=== PATIENT | female | born 1980 | race American Indian/Alaskan Native ===

== ENCOUNTER 2016-10-29 18:38 | Emergency (ER) | payer SELFPAY ==
[2016-10-29 18:50] VITALS: BP 118/84
[2016-10-29 19:44] LABS: Bacteria,Urine 1+ /HPF (Negative); Bilirubin,Urine NEG (Negative); Blood,Urine SM (Negative); Ketones,Urine NEG (Negative); Leukocyte Esterase,Urine MOD (Negative); Nitrite,Urine POS (Negative); Protein,Urine <15 mg/dL mg/dL (Negative); Urobilinogen,Urine < 2.0 mg/dL (<2.0)
--- NOTE | 2016-10-29 21:28 | Emergency Department Report ---
HPI - General Chief Complaint: Urogenital-Female Time Seen by Provider: 10/29/16 21:11 - HPI HPI: Patient is a 36-year-old female presents to the ED cc of urinary frequency and dysuria 2 days. Patient states she has noticed the urine smells a bit different and she is asked to frequent urination. She admits last menstrual period is 10/18/2016 states that she is not . She denies fevers/chills/ nausea/vomiting/abdominal pain/pelvic pain times vaginal bleeding past vaginal discharge or any other symptoms. ED Past Medical Hx - Past Medical History Previous Medical History?: No - Surgical History Additional Surgical History: - Social History Smoking Status: Current Every Day Smoker Substance Use Type: None - Medications Home Medications: Home Medications Medication Instructions Recorded Confirmed Last Taken Type Ciprofloxacin HCl [Ciprofloxacin 500 mg PO Q12HR #14 tab 10/29/16 Unknown Rx TAB] ED Review of Systems ROS: Stated complaint: UTI SYMPTOMS Other details as noted in HPI Constitutional: denies: chills, fever Eyes: denies: eye pain, eye discharge, vision change ENT: denies: ear pain, throat pain Respiratory: denies: cough, shortness of breath, wheezing Cardiovascular: denies: chest pain, palpitations Endocrine: no symptoms reported Gastrointestinal: denies: abdominal pain, nausea, vomiting, diarrhea Genitourinary: dysuria, frequency. denies: urgency, discharge Musculoskeletal: denies: back pain, joint swelling, arthralgia Skin: denies: rash, lesions Neurological: denies: headache, weakness, paresthesias Psychiatric: denies: anxiety, depression Hematological/Lymphatic: denies: easy bleeding, easy bruising Physical Exam - Physical Exam Vital Signs: Vital Signs 10/29/16 18:47 Temperature 98.6 F Pulse Rate 84 Respiratory 17 Rate Blood Pressure 118/84 O2 Sat by Pulse 100 Oximetry Physical Exam: GENERAL: Alert and oriented x3, no apparent distress, Normal Gait, atraumatic. HEAD: Head is normocephalic and a-traumatic. LUNGS: Symetrical with respiration, No wheezing, no rales or crackles, CTAB. HEART: S1, S2 present, regular rate and rhythm without murmur, no rubs, no gallops. Non tender to palpation ABDOMEN: No organomegaly was noted,Positive bowel sounds, soft, and non- distended. . Nontender to palpation on all Quadrants, NO CVA tenderness. SKIN: Warm and dry, No lesions, No ulceration or induration present. ED Course Vital Signs 10/29/16 18:47 Temperature 98.6 F Pulse Rate 84 Respiratory 17 Rate Blood Pressure 118/84 O2 Sat by Pulse 100 Oximetry ED Medical Decision Making - Medical Decision Making 36-year-old female presents with urinary tract infection ED course: Urinalysis, UPT ordered. Urinalysis positive for bacteria and elevated WBC Discussed findings with patient. Patient received Bactrim DS in the ED. Discussed home antibiotics and completion of the LAD is prescribed Vital signs are stable patient is in no acute distress She is neurologically intact Discussed with follow-up. Primary care physician as referred. Critical care attestation.: If time is entered above; I have spent that time in minutes in the direct care of this critically ill patient, excluding procedure time. ED Disposition Clinical Impression: UTI (urinary tract infection) Qualifiers: Urinary tract infection type: acute cystitis Hematuria presence: with hematuria Qualified Code(s): N30.01 - Acute cystitis with hematuria Disposition: TO HOME OR SELFCARE Is pt being admited?: No Does the pt Need Aspirin: No Condition: Stable Instructions: Urinary Tract Infection in Women (ED), Dysuria (ED) Prescriptions: Ciprofloxacin HCl [Ciprofloxacin TAB] 500 mg PO Q12HR #14 tab Referrals: PRIMARY CARE, [Primary Care Provider] - 3-5 Days [facility] [Outside] - 3-5 Days [facility] [Outside] - 3-5 Days Forms: Accompanied Note, Work/School Release Form(ED) Time of Disposition: 21:30
[2016-10-29] MEDS ORDERED: BACTRIM DS PO ONE (21:30)
== END 2016-10-29 21:50 | disposition home or self-care (01) ==
LOC: ED 18:38
DX: N30.01 Acute cystitis with hematuria (principal); F17.200 Nicotine dependence, unspecified, uncomplicated
CPT/HCPCS: 81001; 99283

== ENCOUNTER 2017-01-07 08:54 | Emergency (ER) | payer SELFPAY ==
[2017-01-07 09:37] VITALS: BP 134/99
[2017-01-07 10:00] LABS: Basophils % (Auto) 0.5 % (0.0-1.8); Eosinophils % (Auto) 1.9 % (0.0-4.3); Hemoglobin 14.3 gm/dl (10.1-14.3); Mean Corpuscular HGB Conc 33 % (30-34); Mean Corpuscular Hemoglobin 31 pg (28-32); Mean Corpuscular Volume 94 fl (79-97); Platelet Count 255 K/mm3 (140-440); Red Blood Count 4.58 M/mm3 (3.65-5.03); White Blood Count 10.5 K/mm3 (4.5-11.0)
[2017-01-07 10:23] LABS: Alanine Aminotransferase 7 units/L (7-56); Albumin 3.9 g/dL (3.9-5); Albumin/Globulin Ratio 1.2 %; Alkaline Phosphatase 71 units/L (35-129); Anion Gap 17 mmol/L; BUN/Creatinine Ratio 11.42; Blood Urea Nitrogen 8 mg/dL (7-17); Calcium 8.5 mg/dL (8.4-10.2); Carbon Dioxide 23 mmol/L (22-30); Glucose 95 mg/dL (65-100); Lipase 12 units/L (13-60); Potassium 3.6 mmol/L (3.6-5.0); Sodium 139 mmol/L (137-145); Total Protein 7.2 g/dL (6.3-8.2)
[2017-01-07 10:37] LABS: Bacteria,Urine 2+ /HPF (Negative); Bilirubin,Urine NEG (Negative); Blood,Urine MOD (Negative); Ketones,Urine NEG (Negative); Leukocyte Esterase,Urine MOD (Negative); Nitrite,Urine POS (Negative)
[2017-01-07 10:38] LABS: WBC,Urine > 182.0 /HPF (0.0-6.0)
[2017-01-07] MEDS ORDERED: ROCEPHIN IM ONE (12:16)
[2017-01-07] MEDS ORDERED: ZITHROMAX PO ONE (12:16)
[2017-01-07] MEDS ORDERED: XYLOCAINE 1% MPF 5 mL INFILTRATI ONE (12:16)
--- NOTE | 2017-01-07 12:19 | Emergency Department Report ---
ED Female HPI - General Chief complaint: Abdominal Pain Stated complaint: UTI Time Seen by Provider: 01/07/17 11:54 Source: patient Mode of arrival: Ambulatory Limitations: No Limitations - History of Present Illness Initial comments: 36-year-old female past medical history UTI 3 months ago presents complaining of 3-4 days of dysuria and increased urinary frequency. Denies any fevers chills nausea vomiting. Patient is awake alert and oriented 3 nontoxic appearing. States that symptoms began after sex several days ago. States that she is unsure if her male partner have exposure to an STD. MD Complaint: vaginal discharge, dysuria Onset/Timin -: days(s) Severity: mild Worsens with: urination Are you Now?: No Associated Symptoms: vaginal discharge - Related Data Sexually active: Yes Previous Rx's Medication Instructions Recorded Last Taken Type Ciprofloxacin HCl [Ciprofloxacin 500 mg PO Q12HR #14 tab 10/29/16 Unknown Rx TAB] Ciprofloxacin HCl [Ciprofloxacin 500 mg PO Q12H #14 tab 01/07/17 Unknown Rx TAB] Fluconazole [Diflucan TAB] 150 mg PO ONCE #1 tablet 01/07/17 Unknown Rx Allergies Allergy/AdvReac Type Severity Reaction Status Date / Time No Known Allergies Allergy Unverified 10/29/16 18:46 ED Review of Systems ROS: Stated complaint: UTI Other details as noted in HPI Constitutional: denies: chills, fever Eyes: denies: eye pain, eye discharge, vision change ENT: denies: ear pain, throat pain Respiratory: denies: cough, shortness of breath, wheezing Cardiovascular: denies: chest pain, palpitations Endocrine: no symptoms reported Gastrointestinal: denies: abdominal pain, nausea, diarrhea Genitourinary: urgency, discharge (whitish vaginal discharge). denies: dysuria Musculoskeletal: denies: back pain, joint swelling, arthralgia Skin: denies: rash, lesions Neurological: denies: headache, weakness, paresthesias Psychiatric: denies: anxiety, depression Hematological/Lymphatic: denies: easy bleeding, easy bruising ED Past Medical Hx - Past Medical History Previous Medical History?: No - Surgical History Past Surgical History?: Yes Additional Surgical History: - Social History Smoking Status: Light Tobacco Smoker Substance Use Type: None - Medications Home Medications: Home Medications Medication Instructions Recorded Confirmed Last Taken Type Ciprofloxacin HCl [Ciprofloxacin 500 mg PO Q12HR #14 tab 10/29/16 Unknown Rx TAB] Ciprofloxacin HCl [Ciprofloxacin 500 mg PO Q12H #14 tab 01/07/17 Unknown Rx TAB] Fluconazole [Diflucan TAB] 150 mg PO ONCE #1 tablet 01/07/17 Unknown Rx ED Physical Exam - General Limitations: No Limitations General appearance: alert, in no apparent distress - Head Head exam: Present: atraumatic, normocephalic - Eye Eye exam: Present: normal appearance, PERRL, EOMI - ENT ENT exam: Present: mucous membranes moist - Neck Neck exam: Present: normal inspection, full ROM - Respiratory Respiratory exam: Present: normal lung sounds bilaterally. Absent: respiratory distress - Cardiovascular Cardiovascular Exam: Present: regular rate, normal rhythm. Absent: systolic murmur, diastolic murmur, rubs, gallop - GI/Abdominal GI/Abdominal exam: Present: soft, normal bowel sounds - External exam: Present: normal external exam Speculum exam: Present: normal speculum exam, vaginal discharge (whitish vaginal discharge) - Extremities Exam Extremities exam: Present: normal inspection, normal capillary refill - Back Exam Back exam: Present: normal inspection - Neurological Exam Neurological exam: Present: alert, oriented X3, CN II-XII intact, normal gait - Psychiatric Psychiatric exam: Present: normal affect, normal mood - Skin Skin exam: Present: warm, dry, intact, normal color. Absent: rash ED Course Vital Signs 01/07/17 09:34 Temperature 98.4 F Pulse Rate 86 Respiratory 18 Rate Blood Pressure 134/99 O2 Sat by Pulse 99 Oximetry ED Medical Decision Making - Lab Data Result diagrams: 01/07/17 09:47 01/07/17 09:47 - Medical Decision Making A/P: Urinary tract infection, possible exposure to STD, vaginal yeast infection 1-empiric treatment with azithromycin and ceftriaxone, GC cultures sent 2-wet prep shows yeast treated empirically with fluconazole 3-will treat empirically with ciprofloxacin. Patient states she does not have insurance and can only afford limited amount of medicine. As ciprofloxacin can be used to treat UTIs empirically and is low costI'll prescribe for this 500mg q12h 7 days Critical care attestation.: If time is entered above; I have spent that time in minutes in the direct care of this critically ill patient, excluding procedure time. ED Disposition Clinical Impression: Urinary tract infection Qualifiers: Urinary tract infection type: acute cystitis Hematuria presence: without hematuria Qualified Code(s): N30.00 - Acute cystitis without hematuria Disposition: TO HOME OR SELFCARE Is pt being admited?: No Does the pt Need Aspirin: No Condition: Stable Instructions: Urinary Tract Infection in Women (ED), Vulvovaginal Candidiasis ( ED), Vaginitis (ED) Prescriptions: Ciprofloxacin HCl [Ciprofloxacin TAB] 500 mg PO Q12H #14 tab Fluconazole [Diflucan TAB] 150 mg PO ONCE #1 tablet Referrals: [facility] [Outside] - 3-5 Days [facility] [Outside] - 3-5 Days [facility] [Provider Group] - 3-5 Days Forms: Work/School Release Form(ED) Time of Disposition: 12:50
== END 2017-01-07 13:04 | disposition home or self-care (01) ==
LOC: ED 08:54
DX: N39.0 Urinary tract infection, site not specified (principal)
CPT/HCPCS: 36415; 80053; 81001; 83690; 84703; 85025; 87210; 87591; 96372; 99284; J0696

== ENCOUNTER 2018-10-28 08:55 | Emergency (ER) | payer MEDICAID ==
--- NOTE | 2018-10-28 10:31 | Emergency Department Report ---
ED ENT HPI - General Chief complaint: Sore Throat Stated complaint: CHEST PAIN/FEVER Source: patient Mode of arrival: Ambulatory Limitations: No Limitations - History of Present Illness Initial comments: This is a 38-year-old -[place] female who presents to the emergency room with sore throat since last night. Patient also reports she reveals an congestion. She is currently taking Mucinex D with minimal improvement of symptoms. 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 She has a history of strep throat and concerned possibly has returned. Patient also states she took 2 home test a couple of days ago which one was negative and the other positive. Her last menstrual period was 07/11/2018. Patient states she was and had an in August. She followed up with her PCP and told everything was fine. Patient admits to having unprotected 63 times this over the past 2 weeks and afraid she may possibly be again. She is requesting confirmation test. MD complaint: sore throat -: Last night Location: throat Severity: moderate Severity scale (0 -10): 4 Quality: aching Consistency: intermittent Improves with: none Worsens with: swallowing, eating Associated Symptoms: pain with swallowing, sore throat. denies: fever, cough, gum swelling, toothache, tinnitus, hearing loss, discharge from ear, rhinorrhea - Related Data Previous Rx's Medication Instructions Recorded Last Taken Type Ciprofloxacin HCl [Ciprofloxacin 500 mg PO Q12HR #14 tab 10/29/16 Unknown Rx TAB] Ciprofloxacin HCl [Ciprofloxacin 500 mg PO Q12H #14 tab 01/07/17 Unknown Rx TAB] Fluconazole [Diflucan TAB] 150 mg PO ONCE #1 tablet 01/07/17 Unknown Rx Benzocaine/Mentho [Cepacol X 8 each MM Q2H PRN #3 packet 10/28/18 Unknown Rx Strength] Cetirizine HCl [Zyrtec 10mg tab] 10 mg PO DAILY #30 tablet 10/28/18 Unknown Rx Fluticasone [Flonase] 1 spray NS QDAY #1 bottle 10/28/18 Unknown Rx Allergies Allergy/AdvReac Type Severity Reaction Status Date / Time No Known Allergies Allergy Unverified 10/29/16 18:46 ED Dental HPI - General Chief complaint: Sore Throat Stated complaint: CHEST PAIN/FEVER Source: patient Mode of arrival: Ambulatory Limitations: No Limitations - Related Data Previous Rx's Medication Instructions Recorded Last Taken Type Ciprofloxacin HCl [Ciprofloxacin 500 mg PO Q12HR #14 tab 10/29/16 Unknown Rx TAB] Ciprofloxacin HCl [Ciprofloxacin 500 mg PO Q12H #14 tab 01/07/17 Unknown Rx TAB] Fluconazole [Diflucan TAB] 150 mg PO ONCE #1 tablet 01/07/17 Unknown Rx Benzocaine/Mentho [Cepacol X 8 each MM Q2H PRN #3 packet 10/28/18 Unknown Rx Strength] Cetirizine HCl [Zyrtec 10mg tab] 10 mg PO DAILY #30 tablet 10/28/18 Unknown Rx Fluticasone [Flonase] 1 spray NS QDAY #1 bottle 10/28/18 Unknown Rx Allergies Allergy/AdvReac Type Severity Reaction Status Date / Time No Known Allergies Allergy Unverified 10/29/16 18:46 ED Review of Systems ROS: Stated complaint: CHEST PAIN/FEVER Other details as noted in HPI Constitutional: chills. denies: fever ENT: throat pain, congestion. denies: ear pain Respiratory: denies: cough, shortness of breath, wheezing Cardiovascular: denies: chest pain, palpitations Gastrointestinal: denies: abdominal pain, nausea, diarrhea Neurological: denies: headache, weakness, paresthesias Psychiatric: denies: anxiety, depression ED Past Medical Hx - Past Medical History Previous Medical History?: No - Surgical History Past Surgical History?: Yes Additional Surgical History: - Social History Smoking Status: Current Some Day Smoker Substance Use Type: None - Medications Home Medications: Home Medications Medication Instructions Recorded Confirmed Last Taken Type Ciprofloxacin HCl [Ciprofloxacin 500 mg PO Q12HR #14 tab 10/29/16 Unknown Rx TAB] Ciprofloxacin HCl [Ciprofloxacin 500 mg PO Q12H #14 tab 01/07/17 Unknown Rx TAB] Fluconazole [Diflucan TAB] 150 mg PO ONCE #1 tablet 01/07/17 Unknown Rx Benzocaine/Mentho [Cepacol X 8 each MM Q2H PRN #3 packet 10/28/18 Unknown Rx Strength] Cetirizine HCl [Zyrtec 10mg tab] 10 mg PO DAILY #30 tablet 10/28/18 Unknown Rx Fluticasone [Flonase] 1 spray NS QDAY #1 bottle 10/28/18 Unknown Rx ED Physical Exam - General Limitations: No Limitations General appearance: alert, in no apparent distress - ENT ENT exam: Present: normal orophraynx (erythematous posterior pharynx, uvula midline), mucous membranes moist, TM's normal bilaterally, normal external ear exam, other (turbinate is mildly congested with clear discharge) - Respiratory Respiratory exam: Present: normal lung sounds bilaterally. Absent: respiratory distress, wheezes, rales, rhonchi, stridor - Cardiovascular Cardiovascular Exam: Present: regular rate, normal rhythm. Absent: systolic murmur, diastolic murmur, rubs, gallop - GI/Abdominal GI/Abdominal exam: Present: soft, normal bowel sounds. Absent: distended, tenderness, guarding, rebound, rigid - Neurological Exam Neurological exam: Present: alert, oriented X3 - Psychiatric Psychiatric exam: Present: normal affect, normal mood - Skin Skin exam: Present: warm, dry, intact, normal color. Absent: rash ED Course Vital Signs 10/28/18 09:00 Temperature 98.5 F Pulse Rate 101 H Respiratory 16 Rate Blood Pressure 124/87 O2 Sat by Pulse 98 Oximetry ED Medical Decision Making - Lab Data Lab Results 10/28/18 10/28/18 Range/Units 10:31 Unknown Urine HCG, Qual Negative (Negative) Group A Strep Rapid Negative (Negative) Lab Results 10/28/18 10/28/18 10/28/18 Range/Units 10:31 11:36 Unknown HCG, Qual Negative (Negative) Urine HCG, Qual Negative (Negative) Group A Strep Rapid Negative (Negative) - Medical Decision Making Patient examined by me and stable. No distress noted. Vitals normal. A rapid and urine test was obtained in both negative. Symptoms are susceptible of viral syndrome. She is instructed to take Tylenol or ibuprofen for aches and pains, to drink a lot of liquids to stay home and rest. Start flonase, cepacol, cetirizine, and ibuprofen. Discharged home stable. Educated on care for viral syndrome. She was given a note to return to work tomorrow. Follow up with Primary Care Provider in 2-3 days. She will return to the emergency room if he does not get better as discussed. Critical care attestation.: If time is entered above; I have spent that time in minutes in the direct care of this critically ill patient, excluding procedure time. ED Disposition Clinical Impression: Sore throat (viral), Possible , not confirmed, Negative test Upper respiratory infection Qualifiers: URI type: acute nasopharyngitis (common cold) Qualified Code(s): J00 - Acute nasopharyngitis [common cold] Disposition: DC- TO HOME OR SELFCARE Is pt being admited?: No Does the pt Need Aspirin: No Condition: Stable Instructions: Upper Respiratory Infection (ED) Additional Instructions: Symptoms are most likely coming from for infection. These infections typically do not give antibiotics. He is to take ibuprofen every 6 hours alternated with Tylenol every 4 hours pain. You may not feel like eating which is to be expected. Try eating a bland diet as tolerated. Wash hands frequently. F/U with Primary Care Provider. Return to ER if fever, SOB, or difficulty breathing after 48 hours of supportive care. Prescriptions: Benzocaine/Mentho [Cepacol X Strength] 8 each MM Q2H PRN #3 packet PRN Reason: Sore Throat Fluticasone [Flonase] 1 spray NS QDAY #1 bottle Cetirizine HCl [Zyrtec 10mg tab] 10 mg PO DAILY #30 tablet Referrals: ANDRIY WYATT MD [Primary Care Provider] - 3-5 Days Forms: Work/School Release Form(ED) Time of Disposition: 11:22
[2018-10-28 11:08] LABS: HCG Qualitative,Urine Negative (Negative)
[2018-10-28 12:15] VITALS: BP 124/84
== END 2018-10-28 12:14 | disposition home or self-care (01) ==
LOC: ED 08:55
DX: J02.9 Acute pharyngitis, unspecified (principal); J06.9 Acute upper respiratory infection, unspecified; F17.200 Nicotine dependence, unspecified, uncomplicated; Z79.899 Other long term (current) drug therapy
CPT/HCPCS: 36415; 81025; 84703; 87116; 87430; 99283

== ENCOUNTER 2019-05-22 11:46 | Emergency (ER) | payer MEDICAID, OTHER ==
[2019-05-22 11:50] VITALS: BP 136/86
[2019-05-22] MEDS ORDERED: TETANUS,DIPH,PERTUSS(ACELL) VACCINE 0.5 ML SYRINGE IM ONE (11:59)
--- NOTE | 2019-05-22 11:59 | Event Note ---
ED Screening Note Date of service: 05/22/19 Time: 11:57 ED Screening Note: Pt complains of right hand pain after slamming hand in a door x today This initial assessment/diagnostic orders/clinical plan/treatment(s) is/are subject to change based on patients health status, clinical progression and re- assessment by fellow clinical providers in the ED. Further treatment and workup at subsequent clinical providers discretion. Patient/guardian urged not to elope from the ED as their condition may be serious if not clinically assessed and managed. Initial orders include: ACC tdap XR
[2019-05-22] MEDS ORDERED: HYDROcodone/ACETAMINOPHEN 5-325 MG TAB PO ONE (13:08)
[2019-05-22] MEDS ORDERED: NEOMY 3.5 MG/BACIT 400 UNITS/POLY B 5000 UNITS/GM OINT PACKET TP ONE (13:09)
--- NOTE | 2019-05-22 13:13 | Emergency Department Report ---
Upper Extremity - [facility] Chief Complaint: Extremity Injury, Upper Stated Complaint: R ARM/HAND INJURY Time Seen by Provider: 05/22/19 11:57 Upper Extremity: Left Hand (swollen, painful with bruising) Occurred When: Today Mechanism: Other (accidentally slammed the door) Severity: severe (8/10) Symptoms: Yes Pain with Movement (right hand/fingers), Yes Limited Range of Movement (painful range of motion), Yes Swelling (right hand), Yes Laceration or Abrasion (right hand), No Deformity, No Numbness, No Weakness, No Bruising/Ecchymosis Other History: This is a 39-year-old female presents to the emergency room appears to be crying report that her right hand injured today. She said door slammed on right and this was an accident. She denies any physical abuse. Reports there is some small cuts to the back of her right hand and is very painful with swelling. Denies any numbness or tingling. Reports some pain with movement radiating proximally to the forearm. Denies any other injury. Pain is 8/10 and achy, throbbing. No medication taken prior to coming to the emergency room. Pain is constant ED Review of Systems ROS: Stated complaint: R ARM/HAND INJURY Other details as noted in HPI Constitutional: denies: chills, fever Respiratory: denies: cough, shortness of breath, SOB with exertion, wheezing Cardiovascular: denies: chest pain, palpitations, edema, syncope Musculoskeletal: arthralgia, other (right hand swelling). denies: back pain, myalgia Skin: other (abrasions to right hand) Neurological: denies: headache, weakness, numbness, paresthesias, abnormal gait, vertigo ED Past Medical Hx - Past Medical History Previous Medical History?: No - Surgical History Past Surgical History?: Yes Additional Surgical History: - Family History Family history: hypertension - Social History Smoking Status: Current Some Day Smoker Substance Use Type: Alcohol - Medications Home Medications: Home Medications Medication Instructions Recorded Confirmed Last Taken Type Ciprofloxacin HCl [Ciprofloxacin 500 mg PO Q12HR #14 tab 10/29/16 Unknown Rx TAB] Ciprofloxacin HCl [Ciprofloxacin 500 mg PO Q12H #14 tab 01/07/17 Unknown Rx TAB] Fluconazole [Diflucan TAB] 150 mg PO ONCE #1 tablet 01/07/17 Unknown Rx Benzocaine/Mentho [Cepacol X 8 each MM Q2H PRN #3 packet 10/28/18 Unknown Rx Strength] Cetirizine HCl [Zyrtec 10mg tab] 10 mg PO DAILY #30 tablet 10/28/18 Unknown Rx Fluticasone [Flonase] 1 spray NS QDAY #1 bottle 10/28/18 Unknown Rx Ibuprofen [Motrin] 800 mg PO Q8HR PRN #12 tablet 05/22/19 Unknown Rx cephALEXin [Keflex] 500 mg PO Q8HR 5 Days #15 cap 05/22/19 Unknown Rx Upper Extremity Exam - Exam General: Vital signs noted. No distress. Alert and acting appropriately. This is a 39-year-old female well-nourished well-developed in no acute distress Head and Torso: No HEENT Abnormality, No Neck Tenderness, No Chest/Lungs Abnormality, No Abdominal Tenderness, No Back Tenderness Shoulder Exam: Yes Normal Range of Motion in Shoulder, No Shoulder Tenderness, No Clavicle Tenderness, No Shoulder Deformity, No AC Joint Tenderness Arm Exam: No Arm/Humerus Tenderness, No Arm Deformity Elbow: Yes Normal Range of Motion in Elbow, No Elbow Tenderness, No Elbow Deformity Forearm: No Forearm Tenderness, No Forearm Deformity, No Pain with Pronation, No Pain with Supination Wrist: Yes Normal ROM in Wrist, No Wrist Tenderness, No Wrist Deformity, No Snuffbox Tenderness, No Pain with Axial Thumb Compression Hand: Yes Hand Tenderness (tenderness to palpate to right hand dorsal, at third fourth and fifth metacarpal area and also extending to third fourth and fifth proximal phalanx), Yes Digit Tenderness (fourth and fifth digit proximally. Right hand), Yes Normal ROM in Digit(s) (patient with full range of motion but reports pain with range of motion.), No Hand Deformity, No Digit(s) Deformity, No Tendon Dysfunction CMS Exam: Yes Broken Skin (small abrasions noted to right hand, dorsum), Yes Normal Distal Pulses, Yes Normal Capillary Refill, Yes Normal Distal Sensation Hand L/R Back: 1 - Tender to palpate, right hand, dorsal aspect, swelling and pain with range of motion. ED Course Vital Signs 05/22/19 11:49 Temperature 98.7 F Pulse Rate 121 H Respiratory 16 Rate Blood Pressure 136/86 O2 Sat by Pulse 100 Oximetry Vital Signs 05/22/19 05/22/19 11:49 13:40 Temperature 98.7 F Pulse Rate 121 H 92 H Respiratory 16 Rate Blood Pressure 136/86 O2 Sat by Pulse 100 Oximetry - Reevaluation(s) Reevaluation #1: 05/22/19 13:48 Patient's refuse Boostrix vaccine for tetanus and this is explained to her the reason for vaccination and she refuses even though she said her vaccination is greater than 5 years. She did not want to take any oral medication that she says she has not eaten anything so I gave her Toradol 60 mg IM. Abraised area cleansed with soapy water and Neosporin to site with bandage dressing and x-ray negative for any bony abnormalities. Patient with contusion of right hand and Pool wrap applied. - Orthopedic Splinting/Casting Injury #1 Side: right Upper Extremity Immobilizer: Pool wrap ED Medical Decision Making - Radiology Data Radiology results: report reviewed Care for right hand, dictated by radiologist and report reviewed by myself. Please see details below Print Report Referring Physician: GODFREY RHODES Patient Name: BONITA BLANCA Date of : 1980 Sex: Female Report Date: 2019-05-22 Report Status: Finalized Findings [facility] [address] [place] [address] XRay Report Signed Patient: BONITA LBANCA MR#: [id number] : 1980 Acct:[id number] Age/Sex: 39 / F ADM Date: 05/22/19 Loc: ED Attending Dr: Ordering Physician: GODFREY RHODES Date of Service: 05/22/19 Procedure(s): XR hand 3+V RT Accession Number(s): [id number] cc: GODFREY RHODES Fluoro Time In Minutes: Right hand, 3 views INDICATION: Pain following injury today FINDINGS: There is marked soft tissue swelling over the dorsal aspect of the ulnar side of the hand near the fifth metacarpal phalangeal joint. The underlying bone and joint are intact however with no fractures seen. Signer Name: Howard Austin MD Signed: 05/22/2019 1:18 PM Workstation Name: [id number] Transcribed By: MICHELINE Dictated By: Howard Austin MD Electronically Authenticated By: Howard Austin MD Signed Date/Time: 05/22/198 DD/ 16 TD/TT: - Medical Decision Making This is a 39-year-old female here reports that she injured her right hand. Physical findings for swelling and pain to the dorsal aspect of right hand with small abrasions. Patient refuses Boostrix vaccination and she reports that her last tetanus vaccine was greater than 5 years. I explained the reason for the Boostrix but she continued to refuse. I discussed with her that if she change her mind she can get Boostrix updated her primary care office, walk-in clinic/ urgent care within 72 hours and she was understanding. Wound care done to abraided sites followed by triple antibiotic ointment. Please see procedure note for splinting procedure. Patient given Toradol 60 mg IM for pain. Patient is stable and discharged home in stable condition with her family. She is given prescription for Motrin and Keflex - Differential Diagnosis fracture, contusion, MSK pain Critical care attestation.: If time is entered above; I have spent that time in minutes in the direct care of this critically ill patient, excluding procedure time. ED Disposition Clinical Impression: Contusion of right hand Qualifiers: Encounter type: initial encounter Qualified Code(s): S60.221A - Contusion of right hand, initial encounter Hand injury Qualifiers: Encounter type: initial encounter Laterality: right Qualified Code(s): S69.91XA - Unspecified injury of right wrist, hand and finger(s), initial encounter Abrasion hand Qualifiers: Encounter type: initial encounter Laterality: right Qualified Code(s): S60.511A - Abrasion of right hand, initial encounter Disposition: -01 TO HOME OR SELFCARE Is pt being admited?: No Does the pt Need Aspirin: No Condition: Stable Instructions: Contusion in Adults (ED), Abrasion (ED), RICE Therapy (ED) Additional Instructions: Please see discharge instructions in paperwork given to you. See rice protocol Take Medication as prescribed If Condition worsens, return to the emergency room otherwise follow-up with your primary care and orthopedic doctor in 3 days Referrals: ANDRIY WYATT MD [Primary Care Provider] - 2-3 Days ASH CHAN MD [Staff Physician] - 05/25/19 Forms: Work/School Release Form(ED)
--- NOTE | 2019-05-22 13:22 | XRay Report ---
Right hand, 3 views INDICATION: Pain following injury today FINDINGS: There is marked soft tissue swelling over the dorsal aspect of the ulnar side of the hand n ear the fifth metacarpal phalangeal joint. The underlying bone and joint are intact however with no f ractures seen. Signer Name: Howard Austin MD Signed: 05/22/2019 1:18 PM Workstation Name: [id number]
[2019-05-22] MEDS ORDERED: KETOROLAC 60 MG/2 ML INJ IM ONE (13:27)
== END 2019-05-22 13:40 | disposition home or self-care (01) ==
LOC: ED 11:46
DX: S60.221A Contusion of right hand, initial encounter (principal); S60.511A Abrasion of right hand, initial encounter; F17.200 Nicotine dependence, unspecified, uncomplicated; W23.0XXA Caught, crushed, jammed, or pinched between moving objects, initial encounter; Y93.89 Activity, other specified; Y92.89 Other specified places as the place of occurrence of the external cause; Y99.8 Other external cause status
CPT/HCPCS: 73130; 96372; 99283; J1885; A6250